=== PATIENT | male | born 1950 | race Caucasian/White ===

== ENCOUNTER 2017-04-06 11:55 | Outpatient (CLI) | payer OTHER ==
--- NOTE | 2017-04-06 14:07 | Ultrasound Report ---
RIGHT LEG VENOUS DUPLEX: 04/06/2017 CLINICAL INDICATION: Edema, surgery in June. TECHNIQUE: Real-time sonographic vascular imaging was performed by the booster pump oiler through the right lower extremity utilizing both color flow and Doppler spectral analysis. Multiple electroplating sales representative stat ic images were saved for review. FINDINGS: A right lower extremity venous sonogram is performed revealing the common femoral, superfic ial femoral, profunda femoris, and popliteal veins to be adequately visualized without intraluminal d efects. There is normal venous compression, augmentation, phasicity, and spontaneity of venous flow. In the calf, the visualized more cephalad portions of posterior tibial and peroneal veins are grossly compressible, without filling defects. IMPRESSION: NO EVIDENCE OF DEEP VENOUS THROMBOSIS. JOB #: [id number] EXT JOB #:[id number]
== END 2017-04-06 11:56 | disposition home or self-care (01) ==
LOC: DI 11:55
PROVIDERS: ATTEND Internal Medicine
DX: R60.0 Localized edema (principal)

== ENCOUNTER 2017-04-17 08:33 | Outpatient (CLI) | payer OTHER ==
--- NOTE | 2017-04-17 12:21 | XRAY Report ---
THREE-VIEW BILATERAL ANKLES: 04/17/2017 CLINICAL INDICATION: Bilateral pain. FINDINGS: AP, lateral, oblique views of the bilateral ankles demonstrate no evidence of fracture or dislocation. Small posterior calcaneal spurs are noted bilaterally. No effusion is present. IMPRESSION: MINIMAL DEGENERATIVE CHANGES. JOB #: [id number] EXT JOB #:[id number]
--- NOTE | 2017-04-17 12:22 | XRAY Report ---
THREE VIEW BILATERAL FEET: 04/17/2017 CLINICAL INDICATION: Foot and ankle pain. FINDINGS: AP, lateral, and oblique views of the bilateral feet demonstrate osteoarthritis of the 1st metatarsophalangeal joints and interphalangeal joints. There is no evidence of acute fracture or dis location. IMPRESSION: OSTEOARTHRITIS. 12:9:36 JOB #: [id number] EXT JOB #:[id number]
== END 2017-04-17 08:34 | disposition home or self-care (01) ==
LOC: DI 08:33
PROVIDERS: ATTEND Podiatrist
DX: M25.571 Pain in right ankle and joints of right foot (principal); M25.572 Pain in left ankle and joints of left foot; M19.072 Primary osteoarthritis, left ankle and foot; M19.071 Primary osteoarthritis, right ankle and foot

== ENCOUNTER 2019-04-28 08:47 | Outpatient (CLI) | payer OTHER ==
--- NOTE | 2019-04-29 06:44 | Ultrasound Report ---
Reason: ENCTR FOR SCREENING Procedure Date: 04/28/2019 Accession Number: [id number] / [id number] Procedure: US - Aorta Screening CPT Code: FULL RESULT: EXAM: AORTIC DOPPLER ULTRASOUND EXAM DATE: 04/28/2019 09:22 AM. CLINICAL HISTORY: Encounter for screening. COMPARISON: None. TECHNIQUE: Real-time sonographic imaging of retroperitoneal vascular structures, including color-flow, Doppler flow and spectral analysis was performed by the branch specialist. Multiple telephone service representative static images were saved for review. FINDINGS: Aorta: The abdominal aorta was adequately visualized. No evidence for abdominal aortic aneurysm. Aorta: Proximal: Sagittal AP 2.5 cm. Mid: Transverse 2.1 x 1.9 cm. Distal: Transverse 1.8 x 2.1 cm. Caliber: WNL: Yes. Plaque visualized: Yes. Iliacs: Right Iliac: Transverse 1.2 x 1.2 cm. Left Iliac: Transverse 1.3 x 1.1 cm. Iliac Vessels: The visualized proximal common iliac arteries are normal in caliber. Other: None. IMPRESSION: No abdominal aortic aneurysm. RADIA
== END 2019-04-28 08:48 | disposition home or self-care (01) ==
LOC: DI 08:47
PROVIDERS: ATTEND Internal Medicine
DX: Z13.6 Encounter for screening for cardiovascular disorders (principal)
CPT/HCPCS: 76706

== ENCOUNTER 2019-05-13 08:00 | Outpatient (CLI) | payer OTHER | END 2019-05-13 23:59 | disposition home or self-care (01) | LOC: LAB.R 08:00 | PROVIDERS: ATTEND Internal Medicine | DX: J02.9 Acute pharyngitis, unspecified (principal) | CPT/HCPCS: 87070; 87430 ==

== ENCOUNTER 2019-12-19 13:50 | Outpatient (CLI) | payer BC, MEDICARE | END 2019-12-19 13:51 | disposition home or self-care (01) | LOC: COV 13:50 | PROVIDERS: ATTEND Family Medicine | DX: R50.9 Fever, unspecified (principal) | CPT/HCPCS: 81599 ==

== ENCOUNTER 2021-09-18 11:52 | Day surgery (SDC) | payer MEDICARE, OTHER ==
[2021-09-18] MEDS ORDERED: LACTATED RINGERS 1,000 ML IV ONE ×2 (12:50→14:34)
[2021-09-18] MEDS ORDERED: PROPOFOL 200 MG/20 ML VIAL IVP ONE ×2 (13:28)
[2021-09-18] MEDS ORDERED: fentaNYL 100 MCG/2 ML VIAL ONE (13:29)
[2021-09-18] MEDS ORDERED: MIDAZOLAM 2 MG/2 ML VIAL ONE (13:29)
--- NOTE | 2021-09-18 13:54 | ANESTHESIA ---
Pre-Anesthesia VS, & Labs - Diagnosis screening exam, history of colon polyps - Procedure colonoscopy Vital Signs: Temp Pulse Resp BP Pulse Ox 37 C 90 16 150/84 H 99 09/18/21 12:12 09/18/21 12:12 09/18/21 12:12 09/18/21 12:12 09/18/21 12:12 Height: 6 ft 1 in Weight (kg): 93 kg Body Mass Index: 27.0 BMI Classification: Overweight - NPO >8 hours Home Medications and Allergies Cetirizine HCl [Zyrtec] 10 mg PO DAILY 02/13/16 Levothyroxine [Synthroid] 75 mcg PO QDAC 02/13/16 Melatonin [Vitajoy Melatonin] 2 mg SL DAILY 02/13/16 Minocycline HCl 100 mg PO DAILY PRN 07/01/16 Multivitamin [Multiple Vitamins] 1 tab PO DAILY 07/01/16 Metoprolol Tartrate [Lopressor] 12.5 mg PO PRN PRN 12/20/19 Valsartan [Diovan] 60 mg PO BID 12/20/19 Allergies/Adverse Reactions: Allergies Allergy/AdvReac Type Severity Reaction Status Date / Time adhesive tape Allergy Rash Verified 07/01/16 08:40 aspirin Allergy Rash Verified 02/13/16 13:54 diphenhydramine HCl * Allergy Hives Verified 07/01/16 10:37 [From Benadryl] latex Allergy Rash Verified 07/01/16 08:40 naproxen sodium * Allergy Rash Verified 02/13/16 13:55 [From Aleve] Sulfa (Sulfonamide Allergy Rash Verified 02/13/16 13:54 Antibiotics) clonidine AdvReac Rash Verified 07/04/16 06:58 doxazosin AdvReac Hives Verified 07/04/16 06:58 losartan AdvReac Rash Verified 07/04/16 06:58 omeprazole AdvReac Rash Verified 07/04/16 06:58 Anes History & Medical History - Anesthetic History Anesthesia Complications: reports: No previous complications - Medical History Cardiovascular: reports: Hypertension Pulmonary: reports: Pneumonia Gastrointestinal: reports: None Urinary: reports: None Neuro: reports: None Musculoskeletal: reports: Other Endocrine/Autoimmune: reports: HyPOthyroidism Blood Disorders: reports: None Skin: reports: Rosacea Smoking Status: Former smoker (Quit 38 yrs ago) Psychosocial: reports: No issues indicated History of Cancer?: Yes (colon cancer) - Surgical History General: reports: Bowel surgery, Colonoscopy, EGD Eyes Ears Nose Throat (EENT): reports: Tonsil/Adenoidectomy Exam General: Alert, Oriented x3, Cooperative, No acute distress Dental: Dentures full Upper, Dentures full Lower Mouth Openin Fingerbreadth Neck Mobility: Normal Mallampati classification: II Thyromental Distance: 4-6 cm Mental/Cognitive Status: Alert/Oriented X3, Normal for patient Plan Anesthesia Type: General, Total IV Consent for Procedure(s) Verified and Reviewed: Yes Code Status: Attempt Resuscitation ASA classification: 2-Mild systemic disease Is this case an emergency?: No
[2021-09-18 15:24] VITALS: BP 103/54
--- NOTE | 2021-09-18 18:28 | ANESTHESIA POST OP EVALUATION ---
Anesthesia Post Eval - Post Anesthesia Eval Vitals: Last Vital Signs Temp 36.4 C L 09/18/21 15:00 Pulse 64 09/18/21 15:15 Resp 16 09/18/21 15:15 BP 103/54 L 09/18/21 15:15 Pulse Ox 95 09/18/21 15:15 CV Function Including HR & BP: Stable Pain Control: Satisfactory Nausea & Vomiting: Negative Mental Status: Baseline Respiratory Status: Airway Patent Hydration Status: Satisfactory Anesthesia Complications: None
== END 2021-09-18 11:53 | disposition home or self-care (01) ==
LOC: SDS 11:52
PROVIDERS: ATTEND Surgery
DX: Z12.11 Encounter for screening for malignant neoplasm of colon (principal); Z86.010 Personal history of colon polyps; K64.8 Other hemorrhoids; Z87.891 Personal history of nicotine dependence; Z98.0 Intestinal bypass and anastomosis status; Z90.49 Acquired absence of other specified parts of digestive tract
CPT/HCPCS: G0105; J7120

== ENCOUNTER 2022-03-14 08:00 | Outpatient (CLI) | payer MEDICARE, OTHER ==
[2022-03-14 16:13] LABS: BASOPHILS % (AUTO) 0.7 %; EOSINOPHILS % (AUTO) 3.2 %; HCT - HEMATOCRIT 43.3 % (42.0-52.0); HGB - HEMOGLOBIN 14.4 g/dL (14.0-18.0); LYMPHOCYTES % (AUTO) 56.7 %; MEAN CORPUSCULAR HEMOGLOBIN 29.3 pg (27.0-31.0); MEAN CORPUSCULAR HGB CONC 33.3 g/dL (32.0-36.0); MEAN CORPUSCULAR VOLUME 88.2 fL (80.0-94.0); MEAN PLATELET VOLUME 9.8 fL (7.4-11.4); MONOCYTES % (AUTO) 8.8 %; NEUTROPHILS % (AUTO) 30.5 %; PLT - PLATELET COUNT 151 10^3/uL (130-450); RED BLOOD COUNT 4.91 10^6/uL (4.70-6.10); RED CELL DISTRIBUTION WIDTH 13.6 % (12.0-15.0); WHITE BLOOD COUNT 9.2 x10^3/uL (4.8-10.8)
[2022-03-14 16:29] LABS: ABNORMAL LYMPHS % (MANUAL) 0 %
[2022-03-14 16:34] LABS: PSA TOTAL 1.174 ng/mL (0.000-2.000)
[2022-03-14 17:12] LABS: ALBUMIN 4.5 g/dL (3.2-5.5); ALBUMIN/GLOBULIN RATIO 1.7 (1.0-2.2); ALKALINE PHOSPHATASE 53 IU/L (42-121); ALT ALANINE AMINOTRANSFERASE 20 IU/L (10-60); AST ASPARTATE AMINOTRANSFERASE 19 IU/L (10-42); BUN - BLOOD UREA NITROGEN 11 mg/dL (6-20); CALCIUM 9.3 mg/dL (8.5-10.3); CARBON DIOXIDE - CO2 28 mmol/L (21-32); CHLORIDE 100 mmol/L (101-111); CHOL/HDL RATIO 4.8 (<5.0); CHOLESTEROL 176 mg/dL; CREATININE 0.8 mg/dL (0.6-1.2); GFR - MDRD 96 (>89); GLUCOSE 114 mg/dL (70-100); HDL CHOLESTEROL 37 mg/dL; LDL CHOLESTEROL,CALCULATED 122 mg/dL; LDL/HDL RATIO 3.3 (<3.6); POTASSIUM 4.4 mmol/L (3.5-5.0); SODIUM 136 mmol/L (135-145); TOTAL PROTEIN 7.2 g/dL (6.7-8.2); TRIGLYCERIDES 86 mg/dL; VLDL CHOLESTEROL 17 mg/dL
[2022-03-14 17:24] LABS: BAND NEUTROPHILS % (MANUAL) 3 %; BASOPHILS # (MANUAL) 0.1 10^3/uL (0-0.1); BASOPHILS % (MANUAL) 1 %; DIFFERENTIAL COMMENT MANUAL DIFFERENTIAL; EOSINOPHILS # (MANUAL) 0.3 10^3/uL (0-0.7); LYMPHOCYTES # (MANUAL) 4.3 10^3/uL (1.5-3.5); LYMPHOCYTES % (MANUAL) 47 %; METAMYELOCYTES % (MANUAL) 1 %; MONOCYTES # (MANUAL) 0.9 10^3/uL (0.0-1.0); NEUTROPHILS # (MANUAL) 3.5 10^3/uL (1.5-6.6); PLATELET ESTIMATE, MANUAL NORMAL (130-450,000) (NORMAL); PLATELET MORPHOLOGY NORMAL APPEARANCE (NORMAL); RBC MORPHOLOGY (MULTIPLE) NORMAL APPEARANCE (NORMAL); WBC MORPHOLOGY (MULTIPLE) NORMAL APPEARANCE (NORMAL)
[2022-03-14 19:26] LABS: ESTIMATED AVERAGE GLUCOSE 120 mg/dL (70-100); HEMOGLOBIN A1c% 5.8 % (4.27-6.07)
== END 2022-03-14 23:59 | disposition home or self-care (01) ==
LOC: LAB.R 08:00
PROVIDERS: ATTEND Internal Medicine
DX: Z00.00 Encounter for general adult medical examination without abnormal findings (principal); K21.9 Gastro-esophageal reflux disease without esophagitis; Z86.010 Personal history of colon polyps; R73.9 Hyperglycemia, unspecified; I10 Essential (primary) hypertension; M19.90 Unspecified osteoarthritis, unspecified site; Z12.5 Encounter for screening for malignant neoplasm of prostate; Z79.899 Other long term (current) drug therapy
CPT/HCPCS: 80053; 80061; 83036; 83721; 84153; 84443; 85025

== ENCOUNTER 2022-11-29 12:47 | Emergency (ER) | payer MEDICARE, OTHER ==
[2022-11-29 13:30] LABS: BILIRUBIN,URINE NEGATIVE (NEGATIVE); GLUCOSE, URINE (UA) NEGATIVE (NEGATIVE); KETONES,URINE (UA) NEGATIVE (NEGATIVE); LEUKOCYTE ESTERASE, URINE NEGATIVE (NEGATIVE); NITRITE,URINE NEGATIVE (NEGATIVE); OCCULT BLOOD,URINE NEGATIVE (NEGATIVE); PROTEIN,URINE NEGATIVE (NEGATIVE); UROBILINOGEN,URINE 0.2 (NORMAL) E.U./dL (NORMAL)
[2022-11-29 13:31] LABS: CLARITY,URINE CLEAR (CLEAR)
--- NOTE | 2022-11-29 13:41 | ED Physician Documentation ---
PD HPI ABD PAIN - Stated complaint Stated Complaint: MALE - Chief complaint Chief Complaint: Abd Pain - History obtained from History obtained from: Patient - History of Present Illness Timing - onset: Today Timing - details: Gradual onset Pain level max: 2 Pain level now: 0 Quality: Pain Location: Suprapubic Associated symptoms: Diarrhea (1 week ago), Dysuria, Other (states urine smells). No: Fever, Nausea, Vomiting, Hematemesis, Constipation, Melena, Hematochezia, Hematuria Review of Systems Constitutional: denies: Fever, Chills Respiratory: denies: Cough GI: denies: Nausea, Vomiting, Hematemesis, Bloody / black stool Skin: denies: Rash Musculoskeletal: denies: Neck pain, Back pain PD PAST MEDICAL HISTORY - Past Medical History Cardiovascular: Hypertension Respiratory: Pneumonia Neuro: None Endocrine/Autoimmune: HyPOthyroidism GI: None : None HEENT: Dental implants Psych: Claustrophobia Musculoskeletal: Other Derm: Rosacea - Past Surgical History General: Bowel surgery, Colonoscopy, EGD HEENT: Tonsil/Adenoidectomy - Present Medications Home Medications: Ambulatory Orders Medication Instructions Recorded Confirmed Cetirizine HCl [Zyrtec] 10 mg PO DAILY 02/13/16 09/17/21 Levothyroxine [Synthroid] 75 mcg PO QDAC 02/13/16 09/18/21 Melatonin [Vitajoy Melatonin] 2 mg SL DAILY 02/13/16 09/17/21 Minocycline HCl 100 mg PO DAILY PRN 07/01/16 09/17/21 Multivitamin [Multiple Vitamins] 1 tab PO DAILY 07/01/16 09/17/21 Metoprolol Tartrate [Lopressor] 12.5 mg PO PRN PRN 12/20/19 09/17/21 Valsartan [Diovan] 60 mg PO BID 12/20/19 09/18/21 cephALEXin [Keflex] 500 mg PO Q6H #28 cap 11/29/22 - Allergies Allergies/Adverse Reactions: Allergies Allergy/AdvReac Type Severity Reaction Status Date / Time adhesive tape Allergy Rash Verified 07/01/16 08:40 aspirin Allergy Rash Verified 02/13/16 13:54 diphenhydramine HCl * Allergy Hives Verified 07/01/16 10:37 [From Benadryl] latex Allergy Rash Verified 07/01/16 08:40 naproxen sodium * Allergy Rash Verified 02/13/16 13:55 [From Aleve] Sulfa (Sulfonamide Allergy Rash Verified 02/13/16 13:54 Antibiotics) clonidine AdvReac Rash Verified 07/04/16 06:58 doxazosin AdvReac Hives Verified 07/04/16 06:58 losartan AdvReac Rash Verified 07/04/16 06:58 omeprazole AdvReac Rash Verified 07/04/16 06:58 - Social History Smoking Status: Former smoker (Quit 38 yrs ago) PD ED PE NORMAL - Vitals Vital signs reviewed: Yes - General General: Alert and oriented X 3, No acute distress - HEENT HEENT: Moist mucous membranes - Neck Neck: Supple, no meningeal sign - Cardiac Cardiac: RRR, Strong equal pulses - Respiratory Respiratory: No respiratory distress, Clear bilaterally - Abdomen Abdomen: Soft, Non tender, Non distended - Derm Derm: Warm and dry - Neuro Neuro: Alert and oriented X 3 - Psych Psych: Normal mood, Normal affect Results - Vitals Vitals: Vital Signs - 24 hr 11/29/22 11/29/22 12:55 14:15 Temperature 36.2 C L 36.1 C L Heart Rate 60 59 L Respiratory 18 18 Rate Blood Pressure 154/78 H 154/68 H O2 Saturation 100 98 Oxygen O2 Source Room air - Labs Labs: Laboratory Tests 11/29/22 13:19 Urine Color YELLOW Urine Clarity CLEAR Urine pH 6.0 Ur Specific Stanley 1.010 Urine Protein NEGATIVE Urine Glucose (UA) NEGATIVE Urine Ketones NEGATIVE Urine Occult Blood NEGATIVE Urine Nitrite NEGATIVE Urine Bilirubin NEGATIVE Urine Urobilinogen 0.2 (NORMAL) Ur Leukocyte Esterase NEGATIVE Ur Microscopic Review NOT INDICATED Urine Culture Comments NOT INDICATED PD Medical Decision Making - ED course Complexity details: reviewed results, considered differential, d/w patient, d/w family ED course: No acute findings on urinalysis, however patient had just urinated prior to giving the sample. Possible false negative. I discussed doing blood work and/or imaging. Patient does not want to do either of these at this moment. Feels similar to prior UTI. We will try treating with antibiotics. We will see if the patient symptoms resolve. No symptoms of prostatitis. No pain with bowel movements or sitting. Patient is comfortable with this plan and will return if he develops any worsening symptoms, fevers, abdominal pain, etc. Patient counseled regarding signs and symptoms for which I believe and urgent re-evaluation would be necessary. Patient with good understanding of and agreement to plan and is comfortable going home at this time This document was made in part using voice recognition software. While efforts are made to proofread this document, sound alike and grammatical errors may occur. Departure - Departure Disposition: Home, Self Care Clinical Impression: UTI (urinary tract infection) Qualifiers: Urinary tract infection type: acute cystitis Hematuria presence: without hematuria Qualified Code(s): N30.00 - Acute cystitis without hematuria Condition: Good Instructions: ED UTI Cystitis Male Follow-Up: Dede Silva MD [Primary Care Provider] - As Needed Prescriptions: cephALEXin [Keflex] 500 mg PO Q6H #28 cap Comments: Your prescription was sent to [facility] in [place]. Please take all antibiotics until gone. As we discussed, your symptoms are consistent with a ur inary tract infection, your urinalysis does not show infection, but could be due to your recent urination prior to giving the sample. We did discuss blood work and further work-up, but have elected to proceed with antibiotic therapy and see if this relieves your symptoms. If you develop fevers, worsening pain or other new or worrisome symptoms, please return for further evaluation. Discharge Date/Time: 11/29/22 14:15
[2022-11-29] MEDS ORDERED: cephALEXin 250 MG CAPSULE PO STA (13:56)
[2022-11-29 14:16] VITALS: BP 154/68
== END 2022-11-29 14:15 | disposition home or self-care (01) ==
LOC: ED 12:47
DX: N30.00 Acute cystitis without hematuria (principal); I10 Essential (primary) hypertension; E03.9 Hypothyroidism, unspecified; Z79.899 Other long term (current) drug therapy; Z87.891 Personal history of nicotine dependence
CPT/HCPCS: 81003; 99283; A9270; 81001; 87086

== ENCOUNTER 2023-01-19 16:45 | Outpatient (CLI) | payer MEDICARE, OTHER ==
--- NOTE | 2023-01-20 13:05 | XRAY Report ---
PROCEDURE: Chest 2 View X-Ray INDICATIONS: DYSPNEA,PLEURAL EFFUSION TECHNIQUE: 2 views of the chest were acquired. COMPARISON: CT chest 01/11/2023 FINDINGS: Surgical changes and devices: None. Lungs and pleura: There is near complete opacification of the right hemithorax. It has increased com pared to prior exam. Mediastinum: Mediastinal contours appear normal. Heart size is enlarged. Bones and chest wall: No suspicious bony lesions. Overlying soft tissues appear unremarkable. IMPRESSION: Near complete opacification of the right hemithorax likely representing effusion. Underlying areas of pneumonia or atelectasis in cannot be excluded. No Reviewed by: Amie Ro MD on 01/20/2023 1:04 PM PDT Approved by: Amie Ro MD on 01/20/2023 1:04 PM PDT Station ID: [id number]
== END 2023-01-19 16:46 | disposition home or self-care (01) ==
LOC: DI 16:45
PROVIDERS: ATTEND Internal Medicine
DX: R91.8 Other nonspecific abnormal finding of lung field (principal); J90 Pleural effusion, not elsewhere classified

== ENCOUNTER 2023-01-21 07:11 | Outpatient (CLI) | payer MEDICARE, OTHER ==
[2023-01-21] MEDS ORDERED: LIDOCAINE-MPF 1% 5 ML VIAL ONE (08:01)
[2023-01-21] MEDS ORDERED: MIDAZOLAM 2 MG/2 ML VIAL ONE (08:50)
[2023-01-21] MEDS ORDERED: fentaNYL 100 MCG/2 ML VIAL ONE (08:50)
[2023-01-21] MEDS ORDERED: fentaNYL 100 MCG/2 ML VIAL IVP ONE (09:20)
[2023-01-21] MEDS ORDERED: MIDAZOLAM 2 MG/2 ML VIAL IVP ONE (09:20)
[2023-01-21] MEDS ORDERED: fentaNYL 100 MCG/2 ML VIAL IVP SCH (09:20)
[2023-01-21] MEDS ORDERED: LACTATED RINGERS 1,000 ML IV ONE (10:15)
[2023-01-21 13:11] VITALS: BP 139/72
--- NOTE | 2023-01-21 16:27 | CT Report ---
PROCEDURE: Retroperitoneal Mass BX INDICATIONS: CANCER, ABN IMAGING TECHNIQUE: The risks and benefits of the procedure were discussed with the patient. Consent was obtai lila and placed on the chart. The patient was placed in a prone position on the CT table. Cardiorespir atory monitoring and sedation was provided by residential staff. 1% lidocaine was used to anesthetize the skin over the area of interest. Under CT guidance, a 19-gaug e trocar was advanced into a retroperitoneal lymph node. A 20-gauge needle was used to sample the lef t retroperitoneal lymph node. Approximately 6 samples were obtained and sent for laboratory analysis. COMPARISON: None. FINDINGS: Initial CT demonstrates a large right pleural effusion. Multiple CT images demonstrate the appropriat e location of the biopsy trocar. IMPRESSION: Status post CT-guided left retroperitoneal node biopsy. Reviewed by: Barbara Christina MD on 01/21/2023 4:26 PM PDT Approved by: Barbara Christina MD on 01/21/2023 4:26 PM PDT Station ID: [id number]
== END 2023-01-21 07:12 | disposition home or self-care (01) ==
LOC: DI 07:11
PROVIDERS: ATTEND Internal Medicine
DX: C79.9 Secondary malignant neoplasm of unspecified site (principal); Z79.899 Other long term (current) drug therapy; J90 Pleural effusion, not elsewhere classified
CPT/HCPCS: 36415; 49180; 85049; 85610; 85730; J7120

== ENCOUNTER 2023-01-21 08:00 | Outpatient (CLI) | payer MEDICARE, OTHER ==
[2023-01-21 08:41] LABS: INR 1.2 (0.8-1.2); PT - PROTHROMBIN TIME 13.7 secs (9.9-12.6)
[2023-01-21 08:49] LABS: PARTIAL THROMBOPLASTIN TIME 32.3 secs (24.9-33.3)
== END 2023-01-21 23:59 | disposition home or self-care (01) ==
LOC: LAB.R 08:00
PROVIDERS: ATTEND Internal Medicine
DX: Z79.899 Other long term (current) drug therapy (principal)
CPT/HCPCS: 36415; 85049; 85610; 85730

== ENCOUNTER 2023-01-22 07:39 | Outpatient (CLI) | payer MEDICARE, OTHER ==
[2023-01-22] MEDS ORDERED: LIDOCAINE-MPF 1% 5 ML VIAL ONE (07:58)
[2023-01-22] MEDS ORDERED: LIDOCAINE-MPF 1% 5 ML VIAL TD ONE (08:58)
--- NOTE | 2023-01-22 09:01 | XRAY Report ---
PROCEDURE: Post Thoracentesis 1V CXR INDICATIONS: POST THORA TECHNIQUE: One view of the chest was acquired. COMPARISON: None. FINDINGS: Surgical changes and devices: None. Lungs and pleura: Prominent effusion status post thoracentesis. No pneumothorax. Mediastinum: Mediastinal contours appear normal. Heart size is normal. Bones and chest wall: No suspicious bony lesions. Overlying soft tissues appear unremarkable. IMPRESSION: No pneumothorax status post thoracentesis. Reviewed by: Amie Ro MD on 01/22/2023 9:00 AM PDT Approved by: Amie Ro MD on 01/22/2023 9:00 AM PDT Station ID: [id number]
--- NOTE | 2023-01-22 16:06 | Ultrasound Report ---
PROCEDURE: Thoracentesis Puncture INDICATIONS: RIGHT PLEURAL EFFUSION TECHNIQUE: The indications, alternatives, benefits, risks, and complications of the procedure were explained to the patient. Written informed consent was obtained and placed in the chart. The chest was examined sonographically, and an appropriate site was chosen for thoracentesis. The skin was prepared and diana ped in the usual sterile fashion, and 1% lidocaine was infiltrated from the skin down through the ple ural surface. A 19-gauge catheter-covered needle was then introduced into the pleural space, the cat heter was advanced and the needle was withdrawn, and thereafter pleural fluid was aspirated. The cat heter was then removed and a dressing was applied. COMPARISON: None. FINDINGS: Access site: Right hemithorax. Needle: One-Step centesis catheter with introducer needle. Fluid volume and description: 1.4 L yellow Fluid sent for diagnostic testing: No Medications: 1% lidocaine for local anaesthesia. Complications: None; post-procedural chest radiograph is pending to assess for pneumothorax. IMPRESSION: Successful ultrasound-guided thoracentesis. Reviewed by: Amie Ro MD on 01/22/2023 4:05 PM PDT Approved by: Amie Ro MD on 01/22/2023 4:05 PM PDT Station ID: [id number]
== END 2023-01-22 07:40 | disposition home or self-care (01) ==
LOC: DI 07:39
PROVIDERS: ATTEND Internal Medicine
DX: J90 Pleural effusion, not elsewhere classified (principal)
CPT/HCPCS: 32555

== ENCOUNTER 2023-01-28 11:45 | Outpatient (CLI) | payer MEDICARE, OTHER ==
[2023-01-28] MEDS ORDERED: LIDOCAINE-MPF 1% 5 ML VIAL ONE (12:07)
--- NOTE | 2023-01-28 12:51 | XRAY Report ---
PROCEDURE: Post Thoracentesis 1V CXR INDICATIONS: POST THORA TECHNIQUE: One view of the chest was acquired. COMPARISON: 01/25/2023 FINDINGS: Surgical changes and devices: None. Lungs and pleura: Large right pleural effusion, though smaller compared to the prior study following thoracentesis. There is no pneumothorax. There is partial visualization of a probable right midlung and right perihilar mass. There is a small patchy nodule on the left inferolateral lung. No left-side d pleural effusion. Mediastinum: Mediastinal contours appear normal. Heart size is normal. Bones and chest wall: No suspicious bony lesions. Overlying soft tissues appear unremarkable. IMPRESSION: 1. No right-sided pneumothorax following right thoracentesis. 2. Known pulmonary masses. Reviewed by: Sol Marks MD on 01/28/2023 12:50 PM PDT Approved by: Sol Marks MD on 01/28/2023 12:50 PM PDT Station ID: [id number]
[2023-01-28] MEDS ORDERED: LIDOCAINE-MPF 1% 5 ML VIAL TD ONE (13:32)
--- NOTE | 2023-01-28 15:28 | Ultrasound Report ---
PROCEDURE: Thoracentesis Puncture INDICATIONS: PLEURAL EFFUSION TECHNIQUE: The indications, alternatives, benefits, risks, and complications of the procedure were explained to the patient. Written informed consent was obtained and placed in the chart. The chest was examined sonographically, and an appropriate site was chosen for thoracentesis. The skin was prepared and diana ped in the usual sterile fashion, and 1% lidocaine was infiltrated from the skin down through the ple ural surface. A 19-gauge catheter-covered needle was then introduced into the pleural space, the cat heter was advanced and the needle was withdrawn, and thereafter pleural fluid was aspirated. The cat heter was then removed and a dressing was applied. COMPARISON: 01/22/2023 FINDINGS: Access site: Right hemithorax. Needle: One-Step centesis catheter with introducer needle. Fluid volume and description: 1.6 L dark straw-colored pleural fluid. Fluid sent for diagnostic testing: No Medications: 1% lidocaine for local anaesthesia. Complications: None; post-procedural chest radiograph is pending to assess for pneumothorax. IMPRESSION: Successful ultrasound-guided thoracentesis. Reviewed by: Sol Marks MD on 01/28/2023 3:27 PM PDT Approved by: Sol Marks MD on 01/28/2023 3:27 PM PDT Station ID: [id number]
== END 2023-01-28 11:46 | disposition home or self-care (01) ==
LOC: DI 11:45
PROVIDERS: ATTEND Internal Medicine
DX: J90 Pleural effusion, not elsewhere classified (principal)
CPT/HCPCS: 32555

== ENCOUNTER 2023-02-04 12:13 | Outpatient (CLI) | payer MEDICARE, OTHER ==
[2023-02-04] MEDS ORDERED: LIDOCAINE-MPF 1% 5 ML VIAL ONE (12:37)
--- NOTE | 2023-02-04 13:30 | XRAY Report ---
PROCEDURE: Post Thoracentesis 1V CXR INDICATIONS: POST THORACENTESIS TECHNIQUE: One view of the chest was acquired. COMPARISON: Chest radiographs 01/28/2023. CTA chest 01/11/2023. FINDINGS: Surgical changes and devices: None. Lungs and pleura: Small residual right pleural effusion. No pneumothorax. Right apical opacity is st able and may represent loculated pleural fluid or mass. Previously seen bilateral pulmonary nodules a re not well seen radiographically. Mediastinum: Mediastinal contours appear normal. Heart size is normal. Bones and chest wall: No suspicious bony lesions. Overlying soft tissues appear unremarkable. IMPRESSION: 1.Decreased right pleural effusion status post thoracentesis. No pneumothorax. 2.Right apical opacity may represent loculated fluid or solid mass. Reviewed by: Bethel Jean MD on 02/04/2023 1:28 PM PDT Approved by: Bethel Jean MD on 02/04/2023 1:28 PM PDT Station ID: [id number]
[2023-02-04] MEDS ORDERED: LIDOCAINE-MPF 1% 5 ML VIAL TD ONE (13:44)
--- NOTE | 2023-02-04 13:55 | Ultrasound Report ---
PROCEDURE: Thoracentesis Puncture INDICATIONS: PLEURAL EFFUSION TECHNIQUE: The indications, alternatives, benefits, risks, and complications of the procedure were explained to the patient. Written informed consent was obtained and placed in the chart. The chest was examined sonographically, and an appropriate site was chosen for thoracentesis. The skin was prepared and diana ped in the usual sterile fashion, and 1% lidocaine was infiltrated from the skin down through the ple ural surface. A 19-gauge catheter-covered needle was then introduced into the pleural space, the cat heter was advanced and the needle was withdrawn, and thereafter pleural fluid was aspirated. The cat heter was then removed and a dressing was applied. COMPARISON: Chest radiograph 01/28/2023. FINDINGS: Access site: Right hemithorax. Needle: One-Step centesis catheter with introducer needle. Fluid volume and description: 2.5 L clear brownish fluid Fluid sent for diagnostic testing: Not requested Medications: 1% lidocaine for local anaesthesia. Complications: None; post-procedural chest radiograph is pending to assess for pneumothorax. IMPRESSION: Successful ultrasound-guided thoracentesis. Reviewed by: Bethel Jean MD on 02/04/2023 1:54 PM PDT Approved by: Bethel Jean MD on 02/04/2023 1:54 PM PDT Station ID: [id number]
== END 2023-02-04 12:14 | disposition home or self-care (01) ==
LOC: DI 12:13
PROVIDERS: ATTEND Internal Medicine
DX: J90 Pleural effusion, not elsewhere classified (principal)
CPT/HCPCS: 32555

== ENCOUNTER 2023-02-10 13:22 | Emergency (ER) | payer MEDICARE, OTHER ==
[2023-02-10] MEDS ORDERED: HYDROmorphone 2 MG TABLET PO STA (14:05)
--- NOTE | 2023-02-10 14:29 | ED Physician Documentation ---
History of Present Illness - Stated complaint Stated Complaint: SOA - Chief complaint Chief Complaint: Resp - History obtained from History obtained from: Patient, Family - History of Present Illness Pain level max: 5 Pain level now: 5 - Additonal information Additional information: Patient has a history of stage IV colon cancer with metastases to the lung, right pleural, liver, abdominal adenopathy. He has pending initiation of palliative chemotherapy. He is scheduled for weekly thoracentesis. He states he is having continued pain on the right side of the chest, worse with breathing. He also feels short of breath. This been ongoing for the past several days. He has his next thoracentesis in 2 days. He has only taken Tyle nol for pain. Review of Systems Constitutional: denies: Fever, Chills Respiratory: denies: Cough GI: denies: Vomiting, Diarrhea Skin: denies: Rash PD PAST MEDICAL HISTORY - Past Medical History Cardiovascular: Hypertension, High cholesterol Respiratory: Pneumonia Neuro: None Endocrine/Autoimmune: Type 2 diabetes, HyPOthyroidism GI: GERD, Colon polyps, Other : None HEENT: Chronic hearing loss Psych: Claustrophobia Musculoskeletal: Osteoarthritis Derm: Rosacea, Other - Past Surgical History Past Surgical History: Yes General: Bowel surgery, Colonoscopy HEENT: Tonsil/Adenoidectomy - Present Medications Home Medications: Ambulatory Orders Medication Instructions Recorded Confirmed Levothyroxine [Synthroid] 75 mcg PO QDAC 02/13/16 02/02/23 Minocycline HCl 100 mg PO PRN PRN 07/01/16 02/02/23 Metoprolol Tartrate [Lopressor] 12.5 mg PO PRN PRN 12/20/19 02/02/23 Albuterol 2.5 mg INH Q4H PRN #30 ml 01/25/23 02/02/23 Cholecalciferol (Vitamin D3) 2,000 unit PO 02/02/23 [Vitamin D3] Famotidine 1 tab PO DAILY PRN 02/02/23 02/02/23 Ipratropium/Albuterol [Duoneb] 3 ml INH BID 02/02/23 02/02/23 Magnesium Citrate 125 mg PO BID 02/02/23 02/02/23 Melatonin 1 tab PO DAILY PRN 02/02/23 02/02/23 Ubidecarenone [Co Q10] 50 mg PO DAILY 02/02/23 02/02/23 Hydromorphone HCl 2 mg PO Q6H PRN #14 tablet 02/10/23 - Allergies Allergies/Adverse Reactions: Allergies Allergy/AdvReac Type Severity Reaction Status Date / Time oxycodone Allergy Unknown Unknown Verified 02/10/23 13:26 adhesive tape Allergy Rash Verified 02/10/23 13:26 aspirin Allergy Rash Verified 02/10/23 13:26 diphenhydramine HCl * Allergy Hives Verified 02/10/23 13:26 [From Benadryl] latex Allergy Rash Verified 02/10/23 13:26 naproxen sodium * Allergy Rash Verified 02/10/23 13:26 [From Aleve] Sulfa (Sulfonamide Allergy Rash Verified 02/10/23 13:26 Antibiotics) clonidine AdvReac Rash Verified 02/10/23 13:26 doxazosin AdvReac Hives Verified 02/10/23 13:26 losartan AdvReac Rash Verified 02/10/23 13:26 omeprazole AdvReac Rash Verified 01/25/23 13:09 - Social History Does the pt smoke?: No Smoking Status: Never smoker PD ED PE NORMAL - Vitals Vital signs reviewed: Yes - General General: Alert and oriented X 3, No acute distress - HEENT HEENT: Moist mucous membranes - Neck Neck: Supple, no meningeal sign - Cardiac Cardiac: RRR - Respiratory Respiratory: Other (Diminished breath sounds right side, left side is clear) - Abdomen Abdomen: Soft, Non tender, Non distended - Derm Derm: Warm and dry - Extremities Extremities: No calf tenderness / cord - Neuro Neuro: Alert and oriented X 3 Results - Vitals Vitals: Vital Signs - 24 hr 02/10/23 02/10/23 13:26 15:14 Temperature 36.5 C Heart Rate 95 88 Respiratory 16 17 Rate Blood Pressure 140/84 H 138/88 H O2 Saturation 98 98 Oxygen O2 Source Room air - Rads (name of study) Chest x-ray Relevant Findings:: EMP independent interpretation of test (Large right-sided pleural effusion) PD Medical Decision Making - ED course Complexity details: reviewed results, re-evaluated patient, considered differential, d/w patient, d/w family ED course: 72-year-old male with metastatic stage IV colon cancer, metastases to the right lungs. Scheduled to start palliative chemotherapy soon. He is not in any respiratory distress. No hypoxia. Chest x-ray here shows a recurrence of the pleural effusion. Similar appearance to prior. We will place on pain medication for home and have him follow-up in 2 days for planned thoracentesis. Discussed indications for emergent thoracentesis if needed. Patient and family counseled regarding signs and symptoms for which I believe and urgent re- evaluation would be necessary. Patient with good understanding of and agreement to plan and is comfortable going home at this time This document was made in part using voice recognition software. While efforts are made to proofread this document, sound alike and grammatical errors may occur. Patient feels much better after oral Dilaudid here. Departure - Departure Disposition: 01 Home, Self Care Clinical Impression: Pleural effusion, H/O colon cancer, stage IV Condition: Good Instructions: ED Effusion Pleural Follow-Up: Dede Silva MD [Primary Care Provider] - Within 1 week Prescriptions: Hydromorphone HCl 2 mg PO Q6H PRN #14 tablet PRN Reason: pain Comments: Your prescriptions were sent to [facility] in [place]. Please follow-up for your thoracentesis as scheduled in 2 days. Please return if you worsen. I am prescribing a short course of narcotic pain medication for you. These are potentially dangerous and addictive medications that should be used carefully. These medications may constipate you. Take an fofz-goy-xwnwqqx stool softener (docusate) twice daily with plenty of water while taking these medications. If you go 24 hours without a bowel movement, take [id number]-[id number] miralax, per package instructions. Do not drink or drive while taking these medications. If you received narcotic or sedating medications while in the emergency department, do not drive for 24 hours. Store this medication in a safe, secure place and out of reach of children. It is a violation of federal law to give or sell this medication to another person or to use in a manner other than prescribed. The ED will not refill narcotic prescriptions, including prescriptions lost or stolen. To dispose of unwanted medications: 1. [facility] [address] [facility] [place] has a medication drop box. They accept prescription medications (in pill form) Thursday through Thursday 9:00 a.m. to 5:00 p.m. 2. The [facility] [employer] accepts prescription medications (in pill form only) for disposal year round. Call for more information. 3. Contact the [facility] for the next [facility] sponsored prescription drug collection event. , [phone], or [phone]; Discharge Date/Time: 02/10/23 15:15
[2023-02-10 15:17] VITALS: BP 138/88
--- NOTE | 2023-02-10 17:18 | XRAY Report ---
PROCEDURE: Chest 2 View X-Ray INDICATIONS: chest pain, s/p thoracentesis last week TECHNIQUE: 2 views of the chest were acquired. COMPARISON: None. FINDINGS: Surgical changes and devices: None. Lungs and pleura: There is near complete opacification of the right hemithorax. This is a marked int erval change when compared with the prior plain film from 02/04/2023. Left lung is clear. Mediastinum: Mediastinal contours appear normal. Heart size is normal. Bones and chest wall: No suspicious bony lesions. Overlying soft tissues appear unremarkable. IMPRESSION: Near complete opacification of the right hemithorax presumably secondary to very large right pleural effusion. Reviewed by: Barbara Christina MD on 02/10/2023 5:17 PM PDT Approved by: Barbara Christina MD on 02/10/2023 5:17 PM PDT Station ID: [id number]
== END 2023-02-10 15:15 | disposition home or self-care (01) ==
LOC: ED 13:22
DX: J90 Pleural effusion, not elsewhere classified (principal); C18.9 Malignant neoplasm of colon, unspecified; C78.01 Secondary malignant neoplasm of right lung; C78.7 Secondary malignant neoplasm of liver and intrahepatic bile duct; C77.2 Secondary and unspecified malignant neoplasm of intra-abdominal lymph nodes
CPT/HCPCS: 99283; 99284

== ENCOUNTER 2023-02-12 08:00 | Outpatient (CLI) | payer MEDICARE, OTHER ==
[2023-02-12] MEDS ORDERED: LIDOCAINE-MPF 1% 5 ML VIAL ONE (09:57)
--- NOTE | 2023-02-12 11:49 | Ultrasound Report ---
PROCEDURE: Thoracentesis Puncture INDICATIONS: PLEURAL EFFUSION TECHNIQUE: The indications, alternatives, benefits, risks, and complications of the procedure were explained to the patient. Written informed consent was obtained and placed in the chart. The chest was examined sonographically, and an appropriate site was chosen for thoracentesis. The skin was prepared and diana ped in the usual sterile fashion, and 1% lidocaine was infiltrated from the skin down through the ple ural surface. A 19-gauge catheter-covered needle was then introduced into the pleural space, the cat heter was advanced and the needle was withdrawn, and thereafter pleural fluid was aspirated. The cat heter was then removed and a dressing was applied. COMPARISON: None. FINDINGS: Access site: Right hemithorax. Needle: One-Step centesis catheter with introducer needle. Fluid volume and description: 2 L dark red fluid. Fluid sent for diagnostic testing: None Medications: 1% lidocaine for local anaesthesia. Complications: None; post-procedural chest radiograph is pending to assess for pneumothorax. IMPRESSION: Successful ultrasound-guided thoracentesis. Reviewed by: Hermes Francois on 02/12/2023 11:48 AM PDT Approved by: Hermes Francois on 02/12/2023 11:48 AM PDT Station ID: [id number]
== END 2023-02-12 23:59 | disposition home or self-care (01) ==
LOC: DI 08:00
PROVIDERS: ATTEND Internal Medicine
DX: J90 Pleural effusion, not elsewhere classified (principal)
CPT/HCPCS: 32555

== ENCOUNTER 2023-02-12 09:30 | Day surgery (SDC) | payer MEDICARE, OTHER ==
[2023-02-12] MEDS ORDERED: LACTATED RINGERS 1,000 ML IV ONE ×2 (09:50→12:54)
--- NOTE | 2023-02-12 10:04 | ANESTHESIA ---
Pre-Anesthesia VS, & Labs - Diagnosis colon cancer - Procedure port placement Vital Signs: Temp Pulse Resp BP Pulse Ox O2 Flow Rate 36.7 C 100 21 131/78 H 95 02/12/23 09:50 02/12/23 09:50 02/12/23 09:50 02/12/23 09:50 02/12/23 09:50 Height: 6 ft 1 in Weight (kg): 86.64 kg Body Mass Index: 25.2 BMI Classification: Overweight - NPO >8 hours Home Medications and Allergies Levothyroxine [Synthroid] 75 mcg PO QDAC 02/13/16 Minocycline HCl 100 mg PO PRN PRN 07/01/16 Metoprolol Tartrate [Lopressor] 12.5 mg PO PRN PRN 12/20/19 Cholecalciferol (Vitamin D3) [Vitamin D3] 2,000 unit PO 02/02/23 Famotidine 1 tab PO DAILY PRN 02/02/23 Ipratropium/Albuterol [Duoneb] 3 ml INH BID 02/02/23 Magnesium Citrate 125 mg PO BID 02/02/23 Melatonin 1 tab PO DAILY PRN 02/02/23 Ubidecarenone [Co Q10] 50 mg PO DAILY 02/02/23 Allergies/Adverse Reactions: Allergies Allergy/AdvReac Type Severity Reaction Status Date / Time oxycodone Allergy Unknown Unknown Verified 02/10/23 13:26 adhesive tape Allergy Rash Verified 02/10/23 13:26 aspirin Allergy Rash Verified 02/10/23 13:26 diphenhydramine HCl * Allergy Hives Verified 02/10/23 13:26 [From Benadryl] latex Allergy Rash Verified 02/10/23 13:26 naproxen sodium * Allergy Rash Verified 02/10/23 13:26 [From Aleve] Sulfa (Sulfonamide Allergy Rash Verified 02/10/23 13:26 Antibiotics) clonidine AdvReac Rash Verified 02/10/23 13:26 doxazosin AdvReac Hives Verified 02/10/23 13:26 losartan AdvReac Rash Verified 02/10/23 13:26 omeprazole AdvReac Rash Verified 01/25/23 13:09 Anes History & Medical History - Anesthetic History Anesthesia Complications: reports: No previous complications - Medical History Cardiovascular: reports: Hypertension, High cholesterol Pulmonary: reports: Pneumonia Gastrointestinal: reports: GERD, Colon polyps, Other Urinary: reports: None Neuro: reports: None Musculoskeletal: reports: Osteoarthritis Endocrine/Autoimmune: reports: HyPOthyroidism Blood Disorders: reports: None Skin: reports: Rosacea, Other Smoking Status: Never smoker History of Cancer?: Yes - Surgical History General: reports: Bowel surgery, Colonoscopy Eyes Ears Nose Throat (EENT): reports: Tonsil/Adenoidectomy Exam General: Alert, Oriented x3 Dental: Dentures full Upper, Dentures full Lower Mouth Opening: Greater than 4 Fingerbreadths Neck Mobility: Normal Mallampati classification: II Thyromental Distance: greater than 6 cm Respiratory: Lungs clear, Decreased breath sounds (on right) Cardiovascular: Regular rate, Normal S1, Normal S2 Plan Anesthesia Type: General, Total IV Consent for Procedure(s) Verified and Reviewed: Yes Code Status: Attempt Resuscitation ASA classification: 3-Severe systemic disease Is this case an emergency?: No
[2023-02-12] MEDS ORDERED: LIDOCAINE 1%-EPI 1:100000 20 ML MDV ONE (10:07)
[2023-02-12] MEDS ORDERED: BUPIVACAINE 0.25% PF 30 ML VIAL ONE (10:07)
[2023-02-12] MEDS ORDERED: LIDOCAINE-MPF 1% 5 ML VIAL TD ONE (11:28)
[2023-02-12] MEDS ORDERED: MIDAZOLAM 2 MG/2 ML VIAL ONE (11:54)
[2023-02-12] MEDS ORDERED: fentaNYL 100 MCG/2 ML VIAL ONE (11:54)
--- NOTE | 2023-02-12 11:55 | XRAY Report ---
PROCEDURE: Post Thoracentesis 1V CXR INDICATIONS: POST THORACENTESIS TECHNIQUE: One view of the chest was acquired. COMPARISON: None. FINDINGS: Surgical changes and devices: None. Lungs and pleura: Moderate right pleural effusion. No pneumothorax. Mediastinum: Mediastinal contours appear normal. Heart size is normal. Bones and chest wall: No suspicious bony lesions. Overlying soft tissues appear unremarkable. IMPRESSION: No pneumothorax. Reviewed by: Hermes Francois on 02/12/2023 11:53 AM PDT Approved by: Hermes Francois on 02/12/2023 11:53 AM PDT Station ID: [id number]
[2023-02-12] MEDS ORDERED: PROPOFOL 200 MG/20 ML VIAL IVP ONE ×2 (11:59→12:14)
[2023-02-12] MEDS ORDERED: ceFAZolin 1 GM VIAL ONE (12:10)
[2023-02-12] MEDS ORDERED: BUPIVACAINE 0.25% PF 30 ML VIAL SUBQ ONE ×2 (12:22)
[2023-02-12] MEDS ORDERED: LIDOCAINE 1%-EPI 1:100000 20 ML MDV SUBQ ONE ×2 (12:22)
--- NOTE | 2023-02-12 12:57 | OPERATIVE REPORT ---
Operative Report - General Procedure Date: 02/12/23 - Other Other Information/Narrative: PROCEDURE DATE: 02/12/23 PREOPERATIVE DIAGNOSIS: Kulwinder has Stage IV colon cancer. I am asked to perform venous access using an infusion port. POSTOPERATIVE DIAGNOSIS: Same NAME OF PROCEDURE: Placement of a 9.5F Angiodynamic Power Port into the superior vena cava via a left cephalic vein cutdown. SURGEON: Chago Branham MD, FACS STRATIGRAPHER SURGEON: None ANESTHESIA: Monitored anesthesia care COMPLICATIONS: None ESTIMATED BLOOD LOSS: 5 ml DRAINS: None DESCRIPTION OF OPERATION IS FOLLOWS: After consent for the procedure was obtained, the patient was brought to the operating room, where a surgical time- out was performed, indicating the patient and the procedure to be performed. A rolled towel was placed between the shoulder blades. The anterior chest wall, right and left sides, were prepped with alcohol-free Betadine and draped in a sterile fashion. The left arm was placed at the side, and the left chest wall was exposed. 1% lidocaine with epinephrine in a 50/50 mix with 1/4% Marcaine was used for local anesthesia throughout the procedure. An incision was made in the skin over the left deltopectoral groove and after the subcutaneous tissue was dissected and the deltopectoral groove was identified, the cephalic vein was identified deep within the deltopectoral groove. The cephalic vein was ligated distally and encircled proximally with 3- 0 silk ligatures. A venotomy was made and a single lumen 9.5 Angiodynamic catheter which had been previously flushed with heparinized saline was placed into the vein. Using fluoroscopy the catheter tip was advanced into the superior vena cava. A digital image was obtained for documentation. The proximal 3-0 silk ligature was then use to secure the catheter to the cephalic vein and the catheter was checked to make sure it was not crimped by the 3-0 silk ligature. It easily aspirated blood and infused heparinized saline. The back wall of the cephalic vein was then transected. A subcutaneous pocket was created at the cutdown incision site using electrocautery. The catheter was cut to the appropriate length and attached to the port using the accompanying flange The port was sutured to the pectoralis major muscle and fascia using interrupted 2-0 Prolene suture after the port was placed into the pocket. The port was checked in this position and it aspirated blood and easily instilled heparinized saline. The incision was closed using a running 3-0 Vicryl suture for the subcutaneous tissue. The skin was closed with a running 3-0 Vicryl subcuticular suture with Steri-Strips to reinforce the epidermis. The port again was checked for patency after the skin incision was closed and it functioned appropriately. The site of puncture was marked with indelible ink. Dressings were placed. The patient tolerated the procedure well and was brought to the recovery room with stable vital signs.
--- NOTE | 2023-02-12 13:03 | Discharge Plan ---
Discharge Plan Problem Reviewed?: Yes Disposition: 01 Home, Self Care Condition: Good Diet: Regular Activity Restrictions: (Avoid activity that causes left chest wall pain) Instruction Topics: Vascular Access Implantation Additional Instructions or Follow Up instructions: Keep dressing on and dry until seen in the oncology clinic next week Call the office or, after hours, the ED for questions or concerns. Tylenol or Ibuprofen for discomfort. No Smoking: If you smoke, Please STOP! Call for help.
--- NOTE | 2023-02-12 13:51 | ANESTHESIA POST OP EVALUATION ---
Anesthesia Post Eval - Post Anesthesia Eval Vitals: Last Vital Signs Temp 37.5 C 02/12/23 13:30 Pulse 98 02/12/23 13:30 Resp 22 02/12/23 13:30 BP 125/77 02/12/23 13:30 Pulse Ox 92 02/12/23 13:30 O2 Flow Rate 0 02/12/23 10:59 CV Function Including HR & BP: Stable Pain Control: Satisfactory Nausea & Vomiting: Negative Mental Status: Baseline Respiratory Status: Airway Patent Hydration Status: Satisfactory Anesthesia Complications: None
[2023-02-12 14:24] VITALS: BP 118/72
--- NOTE | 2023-02-13 16:52 | XRAY Report ---
PROCEDURE: OR Port-A-Cath INDICATIONS: Port-a-cath placement CONTRAST: Not applicable. FLUORO TIME: 0.01 min TECHNIQUE: Real time fluoroscopy was performed of the thorax. COMPARISON: Chest 2 views 02/10/2023. FINDINGS: Single intraoperative digital acquisition view targeted to the upper midline of the chest shows a cat heter traversing from left-sided approach and turning inferiorly in the expected area of the superior vena cava, to assist in intraoperative placement of a Port-A-Cath. No pneumothorax. IMPRESSION: Normal limited visualization during operative procedure of placement of a left-sided approach Port-A- Cath. No pneumothorax. Reviewed by: Shalom Bay MD on 02/13/2023 4:51 PM PDT Approved by: Shalom Bay MD on 02/13/2023 4:51 PM PDT Station ID: [id number]
== END 2023-02-12 09:31 | disposition home or self-care (01) ==
LOC: SDS 09:30
PROVIDERS: ATTEND Surgery
DX: C18.9 Malignant neoplasm of colon, unspecified (principal); C78.00 Secondary malignant neoplasm of unspecified lung; C78.7 Secondary malignant neoplasm of liver and intrahepatic bile duct; C78.2 Secondary malignant neoplasm of pleura; J90 Pleural effusion, not elsewhere classified
CPT/HCPCS: 32555; 36561; C1788; J7120

== ENCOUNTER 2023-02-16 10:42 | Outpatient (CLI) | payer MEDICARE, OTHER ==
[2023-02-16] MEDS ORDERED: LIDOCAINE-MPF 1% 5 ML VIAL TD ONE (12:37)
--- NOTE | 2023-02-16 12:44 | XRAY Report ---
PROCEDURE: Post Thoracentesis 1V CXR INDICATIONS: POST THORACENTESIS TECHNIQUE: One view of the chest was acquired. COMPARISON: 02/12/2023 FINDINGS: Surgical changes and devices: Left portacatheter terminates in the lower SVC. Lungs and pleura: Persistent right lung opacity and mild to moderate effusion, similar compared to p rior. Mediastinum: Mediastinal contours appear normal. Heart size is normal. Bones and chest wall: No suspicious bony lesions. Overlying soft tissues appear unremarkable. IMPRESSION: Persistent right lung opacity and mild to moderate effusion. No pneumothorax. Reviewed by: Segundo Girard MD on 02/16/2023 12:43 PM PDT Approved by: Segundo Girard MD on 02/16/2023 12:43 PM PDT Station ID: [id number]
--- NOTE | 2023-02-16 14:56 | Ultrasound Report ---
PROCEDURE: Thoracentesis Puncture INDICATIONS: PLEURAL EFFUSION TECHNIQUE: The indications, alternatives, benefits, risks, and complications of the procedure were explained to the patient. Written informed consent was obtained and placed in the chart. The chest was examined sonographically, and an appropriate site was chosen for thoracentesis. The skin was prepared and diana ped in the usual sterile fashion, and 1% lidocaine was infiltrated from the skin down through the ple ural surface. A 19-gauge catheter-covered needle was then introduced into the pleural space, the cat heter was advanced and the needle was withdrawn, and thereafter pleural fluid was aspirated. The cat heter was then removed and a dressing was applied. COMPARISON: 02/12/2023 FINDINGS: Access site: Right hemithorax. Needle: One-Step centesis catheter with introducer needle. Fluid volume and description: Serous sanguinous, 1.6 L, multiple loculations are present Fluid sent for diagnostic testing: No Medications: 1% lidocaine for local anaesthesia. Complications: None; post-procedural chest radiograph is pending to assess for pneumothorax. IMPRESSION: Successful ultrasound-guided thoracentesis. Reviewed by: Segundo Girard MD on 02/16/2023 2:55 PM PDT Approved by: Segundo Girard MD on 02/16/2023 2:55 PM PDT Station ID: [id number]
== END 2023-02-16 10:43 | disposition home or self-care (01) ==
LOC: DI 10:42
PROVIDERS: ATTEND Internal Medicine
DX: R19.00 Intra-abdominal and pelvic swelling, mass and lump, unspecified site (principal); J90 Pleural effusion, not elsewhere classified
CPT/HCPCS: 32555

== ENCOUNTER 2023-02-19 09:27 | Outpatient (CLI) | payer MEDICARE, OTHER ==
[2023-02-19] MEDS ORDERED: LIDOCAINE-MPF 1% 5 ML VIAL ONE (10:00)
--- NOTE | 2023-02-19 11:00 | XRAY Report ---
PROCEDURE: Post Thoracentesis 1V CXR INDICATIONS: Post thoracentesis imaging TECHNIQUE: One view of the chest was acquired. COMPARISON: 02/16/2023 FINDINGS: Surgical changes and devices: Left chest wall port Lungs and pleura: Persistent right lung opacity and moderate-sized pleural effusion is similar to pr ior. No interval development of pneumothorax. Mediastinum: Mediastinal contours appear normal. Hear t size is normal. Bones and chest wall: No suspicious bony lesions. Overlying soft tissues appear unremarkable. IMPRESSION: No significant interval change. No postprocedural pneumothorax. Note that during thoracentesis, exten sive loculations were noted, and only 250 cc of bloody fluid could be evacuated. Reviewed by: José Will on 02/19/2023 10:58 AM PDT Approved by: José Will on 02/19/2023 10:58 AM PDT Station ID: [id number]
[2023-02-19] MEDS ORDERED: LIDOCAINE-MPF 1% 5 ML VIAL TD ONE (13:10)
--- NOTE | 2023-02-19 15:54 | Ultrasound Report ---
PROCEDURE: Thoracentesis Puncture INDICATIONS: PLEURAL EFFUSION TECHNIQUE: The indications, alternatives, benefits, risks, and complications of the procedure were explained to the patient. Written informed consent was obtained and placed in the chart. The chest was examined sonographically, and an appropriate site was chosen for thoracentesis. The skin was prepared and diana ped in the usual sterile fashion, and 1% lidocaine was infiltrated from the skin down through the ple ural surface. A 19-gauge catheter-covered needle was then introduced into the pleural space, the cat heter was advanced and the needle was withdrawn, and thereafter pleural fluid was aspirated. The cat heter was then removed and a dressing was applied. COMPARISON: None. FINDINGS: Access site: Right hemithorax. Needle: One-Step centesis catheter with introducer needle. Fluid volume and description: 250 mL Bloody fluid Fluid sent for diagnostic testing: None Medications: 1% lidocaine for local anaesthesia. Complications: None; post-procedural chest radiograph is pending to assess for pneumothorax. IMPRESSION: 1. Successful ultrasound-guided thoracentesis. 2. Ultrasound demonstrated loculations of the lung with multiple small loculations measuring 1 to 3 c m. The largest loculation was aspirated today. Future thoracentesis may be limited due to the severit y of the loculations. Reviewed by: José Will on 02/19/2023 3:53 PM PDT Approved by: José Will on 02/19/2023 3:53 PM PDT Station ID: [id number]
== END 2023-02-19 09:28 | disposition home or self-care (01) ==
LOC: DI 09:27
PROVIDERS: ATTEND Internal Medicine
DX: J90 Pleural effusion, not elsewhere classified (principal)
CPT/HCPCS: 32555

== ENCOUNTER 2023-02-23 07:57 | Outpatient (CLI) | payer MEDICARE, OTHER ==
--- NOTE | 2023-02-23 09:32 | Ultrasound Report ---
PROCEDURE: Chest INDICATIONS: PLEURAL EFFUSION TECHNIQUE: Real-time scanning was performed, and a suitable site was marked by the reed polisher for thoracentesis to be performed by the referring clinician. COMPARISON: Ultrasound guided thoracentesis, 02/19/2023, 02/16/201001/12 and 02/12/2023. FINDINGS: There is a loculated right pleural effusion. Compared to the last exam, loculation has inc reased. IMPRESSION: 1. Highly loculated right pleural effusion. There is increased loculation when compared to last ultra sound. It is felt that a therapeutic thoracentesis would not be effective because of extensive locula tion. After discussing with the patient, a therapeutic thoracentesis was not performed. Reviewed by: Alla Rees MD on 02/23/2023 9:30 AM PDT Approved by: Alla Rees MD on 02/23/2023 9:30 AM PDT Station ID: [id number]
== END 2023-02-23 07:58 | disposition home or self-care (01) ==
LOC: DI 07:57
PROVIDERS: ATTEND Nurse Practitioner Adult Health
DX: J90 Pleural effusion, not elsewhere classified (principal)

== ENCOUNTER 2023-03-16 22:29 | Outpatient (CLI) | payer MEDICARE, OTHER | END 2023-03-16 23:59 | disposition critical access hospital (66) | LOC: EMS 22:29 | DX: R47.89 Other speech disturbances (principal); R41.0 Disorientation, unspecified; R50.9 Fever, unspecified | CPT/HCPCS: A0425; A0429 ==

== ENCOUNTER 2023-03-16 22:33 | Emergency (ER) | payer MEDICARE, OTHER ==
[2023-03-16 23:47] LABS: HCT - HEMATOCRIT 35.5 % (42.0-52.0); HGB - HEMOGLOBIN 11.2 g/dL (14.0-18.0); LYMPHOCYTES # (AUTO) 0.2 10^3/uL (1.5-3.5); MEAN CORPUSCULAR HEMOGLOBIN 26.2 pg (27.0-31.0); MEAN CORPUSCULAR HGB CONC 31.5 g/dL (32.0-36.0); MEAN CORPUSCULAR VOLUME 83.1 fL (80.0-94.0); MEAN PLATELET VOLUME 9.8 fL (7.4-11.4); MONOCYTES # (AUTO) 0.5 10^3/uL (0.0-1.0); MONOCYTES % (AUTO) 7.6 %; NEUTROPHILS # (AUTO) 5.3 10^3/uL (1.5-6.6); NEUTROPHILS % (AUTO) 88.6 %; PLT - PLATELET COUNT 137 10^3/uL (130-450); RED BLOOD COUNT 4.27 10^6/uL (4.70-6.10); RED CELL DISTRIBUTION WIDTH 13.9 % (12.0-15.0)
[2023-03-16] MEDS: ACETAMINOPHEN 500 MG TABLET PO STA (23:49)
[2023-03-16] MEDS: IBUPROFEN 800 MG TABLET PO STA (23:49)
[2023-03-16] MEDS: SODIUM CHLORIDE 0.9% 1,000 ML IV STA (23:49)
[2023-03-16] MEDS ORDERED: iohexoL-300 100 ML VIAL ONE (23:52)
[2023-03-17 01:14] LABS: ALBUMIN 3.1 g/dL (3.2-5.5); ALBUMIN/GLOBULIN RATIO 0.9 (1.0-2.2); BILIRUBIN,TOTAL 0.7 mg/dL (0.2-1.0); CALCIUM 8.4 mg/dL (8.5-10.3); CREATININE 0.8 mg/dL (0.6-1.2); POTASSIUM 4.2 mmol/L (3.5-5.0); TOTAL PROTEIN 6.6 g/dL (6.7-8.2)
[2023-03-17 01:16] LABS: B. PARAPERTUSSIS- RESP PCR PAN NOT DETECTED; B. PERTUSSIS- RESP PCR PANEL NOT DETECTED; C. PNEUMONIAE- RESP PCR PANEL NOT DETECTED; CORONAVIRUS 229E-RESP PCR NOT DETECTED; CORONAVIRUS HKU1-RESP PCR NOT DETECTED; CORONAVIRUS NL63-RESP PCR NOT DETECTED; CORONAVIRUS OC43-RESP PCR NOT DETECTED; HUMAN METAPNEUMOVIRUS NOT DETECTED; INFLUENZA A- RESP PCR PANEL NOT DETECTED; INFLUENZA B - RESP PCR PANEL NOT DETECTED; M. PNEUMONIAE- RESP PCR PANEL NOT DETECTED; PARAINFLUENZA VIRUS 1 NOT DETECTED; PARAINFLUENZA VIRUS 2 NOT DETECTED; PARAINFLUENZA VIRUS 3 NOT DETECTED; PARAINFLUENZA VIRUS 4 NOT DETECTED; RHINOVIRUS/ENTEROVIRUS NOT DETECTED; RSV- RESP PCR PANEL NOT DETECTED; SARS-CoV-2 -RESP PCR PANEL NOT DETECTED
[2023-03-17] MEDS: iohexoL-300 100 ML VIAL IVP ONE (01:21)
[2023-03-17] MEDS: SODIUM CHLORIDE 0.9% 1,000 ML IV STA ×2 (01:46→02:28)
--- NOTE | 2023-03-17 01:48 | XRAY Report ---
PROCEDURE: Chest 1 View X-Ray INDICATIONS: fever, cough TECHNIQUE: One view of the chest was acquired. COMPARISON: Chest x-ray 02/16/2023 FINDINGS: Surgical changes and devices: Left subclavian Port-A-Cath appears stable in position. Lungs and pleura: There is a persistent small to moderate right pleural effusion with loculation sup eriorly. Improved aeration demonstrated in the right lung with persistent medial right basilar atelec tasis or consolidation. Mild linear atelectasis or consolidation also demonstrated medially in the le ft lung base. No evidence of pneumothorax. Mediastinum: Mediastinal contours appear normal. Heart size is normal. Bones and chest wall: No suspicious bony lesions. Overlying soft tissues appear unremarkable. IMPRESSION: 1. Persistent small to moderate loculated right pleural effusion. 2. Improved aeration in the right lung with persistent medial right basilar consolidation or atelecta sis. 3. Mild atelectasis or consolidation also demonstrated medially in the left lung base. Reviewed by: Martinez Herrera MD on 03/17/2023 1:46 AM PDT Approved by: Martinez Herrera MD on 03/17/2023 1:46 AM PDT Station ID: [id number]
--- NOTE | 2023-03-17 01:52 | CT Report ---
PROCEDURE: ANGIO HEAD W/WO INDICATIONS: aphasia CONTRAST: Omni 300 100ml TECHNIQUE: Precontrast 4.5 mm thick angled axial sections acquired from the foramen magnum to the vertex. Afte r the administration of intravenous contrast, 1 mm thick sections acquired through the [place] of [place] is. Postcontrast 4.5 mm thick sections then re-acquired from the foramen magnum to the vertex. 3-di mensional qngtoek-idfgwumlu-cgpedkavxe (MIP) and/or volume rendering reformats were acquired of the c entral intracranial vasculature. For radiation dose reduction, the following was used: automated ex posure control, adjustment of mA and/or kV according to patient size. COMPARISON: Concurrent CTA of the neck FINDINGS: Image quality: There is mild motion artifact. BRAIN: CSF spaces: Basal cisterns are patent. No extra-axial fluid collections. Ventricles are normal in size and shape. Brain: No intracranial hemorrhage, mass, or mass effect. Velez-white matter interface appears preser joaquin. No abnormal intracranial enhancement. Skull and face: Calvarium and facial bones appear intact, without suspicious lesions. Orbits appear normal. Sinuses: Sinuses and mastoids are clear. HEAD CT ANGIOGRAPHY: Anterior circulation: Intracranial internal carotid arteries are normal in size and appear patent bi laterally. There is mild atherosclerotic calcification along the cavernous segments of the internal carotid arteries. The paired anterior cerebral arteries appear patent bilaterally. The anterior com municating artery also appears patent. The middle cerebral arteries appear patent bilaterally. No hi gh-grade stenosis, occlusion, or filling defects. No cerebral aneurysms identified. Posterior circulation: Visualized portions of the vertebral arteries demonstrate normal caliber, and join to form a patent basilar artery. The posterior cerebral arteries appears patent bilaterally. No high-grade stenosis, occlusion, or filling defects. No cerebral aneurysms identified. IMPRESSION: 1. No acute intracranial abnormality. 2. No high-grade stenosis or occlusion of the central intracranial arteries. Reviewed by: Martinez Herrera MD on 03/17/2023 1:51 AM PDT Approved by: Martinez Herrera MD on 03/17/2023 1:51 AM PDT Station ID: [id number]
--- NOTE | 2023-03-17 01:56 | CT Report ---
PROCEDURE: ANGIO NECK W INDICATIONS: aphasia CONTRAST: Omni 300 100ml TECHNIQUE: After the administration of intravenous contrast, 1.5 mm axial sections acquired from the aortic arch to the [place] of [place]. Coronal 3-D maximum intensity projection (MIP) and/or volume rendering ref ormats were then performed. For radiation dose reduction, the following was used: automated exposur e control, adjustment of mA and/or kV according to patient size. COMPARISON: Concurrent CTA of the head. FINDINGS: Image quality: Excellent. NECK CT ANGIOGRAPHY: Carotid system: The great vessels demonstrate a conventional anatomy as they arise from the aortic a rch. The origins of the common carotid arteries appear patent. The common carotid arteries demonstr ate normal caliber and courses. The bifurcation regions are both widely patent. The internal caroti d arteries demonstrate normal calibers and courses. Posterior circulation: The origins of the vertebral arteries both appear patent. The more superior extracranial portions of both vertebral arteries also demonstrate normal courses and calibers. They join to form a patent basilar artery. Soft tissues: Visualized neck soft tissues demonstrate no suspicious abnormalities. Thorax demonstra salvatore a partially visualized moderate right pleural effusion with associated compressive atelectasis. I n addition, there are bilateral pulmonary nodules within the visualized lungs including a right upper lobe nodule measuring up to 1.6 cm on series 2 image 2 and a left upper lobe medial nodule measuring 1.6 cm on series 2 image 40. Bones: No suspicious bony lesions. Visualized cervical spine demonstrates straightening of the cerv ical lordosis. There is multilevel degenerative disc disease and facet joint arthropathy. IMPRESSION: 1. No high-grade stenosis or occlusion of the head and neck arteries. 2. Partially visualized moderate right pleural effusion. 3. Bilateral pulmonary nodules within the visualized lungs. The findings are nonspecific but suspicio us for metastatic disease. Recommend dedicated chest CT when clinically feasible. The estimate of stenosis included in the report of the imaging study was calculated using the NASCET method Reviewed by: Martinez Herrera MD on 03/17/2023 1:55 AM PDT Approved by: Martinez Herrera MD on 03/17/2023 1:55 AM PDT Station ID: [id number]
[2023-03-17 03:43] LABS: BILIRUBIN,URINE NEGATIVE (NEGATIVE); GLUCOSE, URINE (UA) NEGATIVE (NEGATIVE); KETONES,URINE (UA) NEGATIVE (NEGATIVE); LEUKOCYTE ESTERASE, URINE NEGATIVE (NEGATIVE); NITRITE,URINE NEGATIVE (NEGATIVE); OCCULT BLOOD,URINE NEGATIVE (NEGATIVE); PH,URINE 5.5 PH (5.0-7.5); PROTEIN,URINE 30 mg/dL (NEGATIVE); UROBILINOGEN,URINE 0.2 (NORMAL) E.U./dL (NORMAL)
[2023-03-17 03:52] LABS: CLARITY,URINE CLEAR (CLEAR)
[2023-03-17] MEDS: ACETAMINOPHEN 325 MG TABLET PO STA (03:52)
[2023-03-17 03:53] LABS: BACTERIA,URINE None Seen /HPF (None Seen); RBC,URINE None Seen /HPF (0-5); SQUAMOUS EPITHELIAL CELL,UR NONE SEEN (<= Few); WBC,URINE 0-3 /HPF (0-3)
--- NOTE | 2023-03-17 04:19 | ED Physician Documentation ---
History of Present Illness - Stated complaint Stated Complaint: Confusion - Chief complaint Chief Complaint: Neuro - History obtained from History obtained from: Patient, Family, EMS - Additonal information Additional information: The patient is brought to the emergency department by EMS for chief complaint of confusion and saying the wrong words. Patient's states that he had seemed to be fine earlier in the day and in the evening but began to complain in the evening that he felt cold. The states she did not think too much of this because the patient has had cold sensitivity since being on chemo, and had just had something to drink. The suggested that they just go to bed and get some rest, but the patient began to have episodes of saying the wrong words. The noticed that it seemed to increasingly get worse and finally she became concerned and decided to Have the patient brought in for evaluation. The patient is able to answer occasional questions, then mostly, he is not able to answer coherently. The denies any focal deficits otherwise. The patient is being treated for stage IV metastatic colorectal cancer, And has just been started on immunotherapy and oral agents. The patient did vomit once This evening and suspects he brought up all of his pills. He has had a chronic cough but nothing new recently. He has not had any chest pain or abdominal pain. No other complaints at this time. PD PAST MEDICAL HISTORY - Past Medical History Cardiovascular: Hypertension, High cholesterol Respiratory: Pneumonia Neuro: None Endocrine/Autoimmune: Type 2 diabetes, HyPOthyroidism GI: GERD, Colon polyps, Other : None HEENT: Chronic hearing loss Psych: Claustrophobia Musculoskeletal: Osteoarthritis Derm: Rosacea, Other - Past Surgical History Past Surgical History: Yes General: Bowel surgery, Colonoscopy HEENT: Tonsil/Adenoidectomy - Present Medications Home Medications: Ambulatory Orders Medication Instructions Recorded Confirmed Levothyroxine [Synthroid] 75 mcg PO QDAC 02/13/16 03/17/23 Minocycline HCl 100 mg PO PRN PRN 07/01/16 03/17/23 Metoprolol Tartrate [Lopressor] 12.5 mg PO PRN PRN 12/20/19 03/17/23 Albuterol 2.5 mg INH Q4H PRN #30 ml 01/25/23 03/17/23 Cholecalciferol (Vitamin D3) 2,000 unit PO UD 02/02/23 03/17/23 [Vitamin D3] Famotidine 1 tab PO DAILY PRN 02/02/23 03/17/23 Ipratropium/Albuterol [Duoneb] 3 ml INH BID 02/02/23 03/17/23 Magnesium Citrate 125 mg PO BID 02/02/23 03/17/23 Melatonin 1 tab PO DAILY PRN 02/02/23 03/17/23 Ubidecarenone [Co Q10] 50 mg PO DAILY 02/02/23 03/17/23 Hydromorphone HCl 2 mg PO Q6H PRN #14 tablet 02/10/23 03/17/23 Prochlorperazine Maleate 10 mg PO RTQ4H PRN 02/16/23 03/17/23 [Compazine] ondansetron HCL [Ondansetron HCl] 8 mg PO PRN PRN 02/16/23 03/17/23 Capecitabine [Xeloda] 2,000 mg PO BID 02/24/23 03/17/23 - Allergies Allergies/Adverse Reactions: Allergies Allergy/AdvReac Type Severity Reaction Status Date / Time oxycodone Allergy Unknown Unknown Verified 03/16/23 22:42 adhesive tape Allergy Rash Verified 03/16/23 22:42 aspirin Allergy Rash Verified 03/16/23 22:42 diphenhydramine HCl * Allergy Hives Verified 03/16/23 22:42 [From Benadryl] latex Allergy Rash Verified 03/16/23 22:42 naproxen sodium * Allergy Rash Verified 03/16/23 22:42 [From Aleve] Sulfa (Sulfonamide Allergy Rash Verified 03/16/23 22:42 Antibiotics) clonidine AdvReac Rash Verified 03/16/23 22:42 doxazosin AdvReac Hives Verified 03/16/23 22:42 losartan AdvReac Rash Verified 03/16/23 22:42 omeprazole AdvReac Rash Verified 03/16/23 22:42 - Social History Does the pt smoke?: No Smoking Status: Never smoker PD ED PE NORMAL - Vitals Vital signs reviewed: Yes - General General: No acute distress, Well developed/nourished, Other (The patient is awake and pleasant, but occasionally dozes off. He is in no apparent distress.) - HEENT HEENT: Atraumatic, PERRL, EOMI, Moist mucous membranes - Neck Neck: Supple, no meningeal sign - Cardiac Cardiac: RRR, No murmur, Strong equal pulses - Respiratory Respiratory: No respiratory distress, Clear bilaterally - Abdomen Abdomen: Soft, Non tender, Non distended - Derm Derm: Normal color, Warm and dry, No rash - Extremities Extremities: No deformity, No edema - Neuro Neuro: No motor deficit, No sensory deficit, Other (The patient appears to understand question but then answers either with inappropriate words or complete gibberish.) - Psych Psych: Normal mood, Normal affect Results - Vitals Vitals: Vital Signs - 24 hr 03/16/23 03/16/23 03/17/23 22:39 23:22 00:15 Temperature 39.7 C H Heart Rate 106 H 98 97 Respiratory 19 18 18 Rate Blood Pressure 123/59 L 122/60 125/62 O2 Saturation 90 L 92 94 03/17/23 03/17/23 03/17/23 01:45 02:30 03:50 Temperature 37.1 C 36.9 C Heart Rate 87 84 76 Respiratory 18 18 Rate Blood Pressure 113/68 108/60 O2 Saturation 95 99 94 03/17/23 04:25 Temperature 36.7 C Heart Rate 63 Respiratory 22 Rate Blood Pressure 116/63 O2 Saturation 94 Oxygen O2 Source Room air - Labs Labs: Laboratory Tests 03/16/23 03/16/23 03/16/23 23:21 23:21 23:21 WBC 6.0 RBC 4.27 L Hgb 11.2 L Hct 35.5 L MCV 83.1 MCH 26.2 L MCHC 31.5 L RDW 13.9 Plt Count 137 MPV 9.8 Neut # (Auto) 5.3 Lymph # (Auto) 0.2 L [place] # (Auto) 0.5 Eos # (Auto) 0.0 Baso # (Auto) 0.0 Absolute Nucleated RBC 0.00 Nucleated RBC % 0.0 Sodium 133 L Potassium 4.2 Chloride 98 L Carbon Dioxide 23 Anion Gap 12.0 BUN 12 Creatinine 0.8 Estimated GFR (MDRD) 96 Glucose 180 H Lactic Acid 2.2 Calcium 8.4 L Total Bilirubin 0.7 AST 28 ALT 30 Alkaline Phosphatase 81 Total Protein 6.6 L Albumin 3.1 L Globulin 3.5 Albumin/Globulin Ratio 0.9 L Lipase 27 Urine Color Urine Clarity Urine pH Ur Specific [place] Urine Protein Urine Glucose (UA) Urine Ketones Urine Occult Blood Urine Nitrite Urine Bilirubin Urine Urobilinogen Ur Leukocyte Esterase Urine RBC Urine WBC Ur Squamous Epith Cells Urine Bacteria Ur Microscopic Review Urine Culture Comments Nasal Adenovirus (PCR) Nasal B. parapertussis DNA (PCR) Nasal Coronavir 229E PCR Nasal Coronavir HKU1 PCR Nasal Coronavir NL63 PCR Nasal Coronavir OC43 PCR Nasal Enterovir/Rhinovir PCR Nasal Influenza B PCR Nasal Influenza A PCR Nasal Parainfluen 1 PCR Nasal Parainfluen 2 PCR Nasal Parainfluen 3 PCR Nasal Parainfluen 4 PCR Nasal RSV (PCR) Nasal B.pertussis DNA PCR Nasal C.pneumoniae (PCR) [place] Human Metapneumo PCR Nasal M.pneumoniae (PCR) Nasal SARS-CoV-2 (PCR) 03/17/23 03/17/23 00:12 03:25 WBC RBC Hgb Hct MCV MCH MCHC RDW Plt Count MPV Neut # (Auto) Lymph # (Auto) [place] # (Auto) Eos # (Auto) Baso # (Auto) Absolute Nucleated RBC Nucleated RBC % Sodium Potassium Chloride Carbon Dioxide Anion Gap BUN Creatinine Estimated GFR (MDRD) Glucose Lactic Acid Calcium Total Bilirubin AST ALT Alkaline Phosphatase Total Protein Albumin Globulin Albumin/Globulin Ratio Lipase Urine Color YELLOW Urine Clarity CLEAR Urine pH 5.5 Ur Specific [place] 1.010 Urine Protein 30 H Urine Glucose (UA) NEGATIVE Urine Ketones NEGATIVE Urine Occult Blood NEGATIVE Urine Nitrite NEGATIVE Urine Bilirubin NEGATIVE Urine Urobilinogen 0.2 (NORMAL) Ur Leukocyte Esterase NEGATIVE Urine RBC None Seen Urine WBC 0-3 Ur Squamous Epith Cells NONE SEEN Urine Bacteria None Seen Ur Microscopic Review INDICATED Urine Culture Comments NOT INDICATED Nasal Adenovirus (PCR) NOT DETECTED Nasal B. parapertussis DNA (PCR) NOT DETECTED Nasal Coronavir 229E PCR NOT DETECTED Nasal Coronavir HKU1 PCR NOT DETECTED Nasal Coronavir NL63 PCR NOT DETECTED Nasal Coronavir OC43 PCR NOT DETECTED Nasal Enterovir/Rhinovir PCR NOT DETECTED Nasal Influenza B PCR NOT DETECTED Nasal Influenza A PCR NOT DETECTED Nasal Parainfluen 1 PCR NOT DETECTED Nasal Parainfluen 2 PCR NOT DETECTED Nasal Parainfluen 3 PCR NOT DETECTED Nasal Parainfluen 4 PCR NOT DETECTED Nasal RSV (PCR) NOT DETECTED Nasal B.pertussis DNA PCR NOT DETECTED Nasal C.pneumoniae (PCR) NOT DETECTED Gu[place] Human Metapneumo PCR NOT DETECTED Nasal M.pneumoniae (PCR) NOT DETECTED Nasal SARS-CoV-2 (PCR) NOT DETECTED - Rads (name of study) CTA head and neck Relevant Findings:: Final report received, See rad report (No blockages noted.) Chest x-ray Relevant Findings:: Final report received, See rad report (Improvement in right lung aeration but still some consolidation present. Small right pleural effusion. Left lung with consolidation.) PD Medical Decision Making - ED course Complexity details: reviewed results, re-evaluated patient, considered differential, d/w patient, d/w family ED course: The patient was treated symptomatically with IV fluid and doses of ibuprofen and Tylenol. I was not sure whether the patient was exhibiting febrile delirium or having cerebrovascular accident and as such, I ordered multiple test to cover both possibilities. Extensive work-up in the emergency department was negative. The patient CT angiograms of the head and neck were negative for any iden tifiable blockage, and laboratory studies including CBC, lactate, And ear abdominal panel were unremarkable. The patient had a normal white blood cell count and a normal lactic acid level. Respiratory PCR panel was negative also. Chest x-ray showed chronic findings but nothing acute or indicative of infection. The patient's urinalysis was negative. Blood cultures were drawn and pending. On reevaluation, the patient was found to be completely lucid. He had defervesced in the emergency department and concurrent with this was his improvement in mental status. I suspected that given his CTAs being negative and the Concurrence of the altered mental status with the fever, and rule resolution of the same, that the patient was more likely experiencing febrile delirium than aphasia secondary to a TIA. I discussed with the patient and his that at this point we have not found a reason for the patient's fever. Extensive work-up has been done and the only thing pending at this point in time are the blood cultures. On reevaluation, with lucid mental status, the patient denies any other symptoms whatsoever. He has no abdominal pain to indicate anything intra-abdominal he that is worse or different than the usual discomfort that he has secondary to his colorectal cancer. At this point the patient's vitals are stable and he is doing much better and I feel he can be discharged home. I discussed with the patient and his that the preliminary results of the blood Kroschel's will come back tomorrow and that if these are positive we will call him at home. They also understand that they should have a very low threshold for return to the emergency department, should the patient begin to feel worse. Patient is are agreeable to this plan. Departure - Departure Disposition: 01 Home, Self Care Clinical Impression: Delirium Fever Qualifiers: Fever type: unspecified Qualified Code(s): R50.9 - Fever, unspecified Condition: Stable Instructions: ED Fever Unconf Cause Comments: You were found to have a significant fever today and this is most likely the cause of your confusion and speaking the wrong words, given that you do not remember the incident at all and have completely resolved your symptoms with the fever coming down. You were worked up extensively to determine the cause of your symptoms, including with CT scans of the head and neck looking at all the vessels providing blood flow to your brain. These were negative for any blockage which would indicate a stroke. Laboratory studies were also performed which showed a normal white blood cell count, negative sepsis markers, and no other significant findings. Respiratory PCR panel was also negative. Your chest x-ray showed the findings consistent with the lung metastases and scarring but did not show findings consistent with pneumonia at this time. Your urinalysis is negative. The only test pending still are your blood cultures which will yield a preliminary result tomorrow. If this is at all positive, you will be called at home. For now, you are doing much better and there is no evidence at this point in time of a serious bacterial infection. You may go home and continue to drink lots of fluids. You should also take ibuprofen 600 mg every 6 hours and acetaminophen/Tylenol 650 mg every 4 hours, as needed for fever. If you at all feel that your general condition is worsening, then please return to the emergency department for further evaluation. At this point in time, you are stable for discharge home. Discharge Date/Time: 03/17/23 03:30
[2023-03-17 05:03] VITALS: BP 116/63
== END 2023-03-17 03:30 | disposition home or self-care (01) ==
LOC: EDUNIT# → ED 22:33
DX: R41.0 Disorientation, unspecified (principal); R50.9 Fever, unspecified; Z20.822 Contact with and (suspected) exposure to COVID-19
CPT/HCPCS: 36415; 80053; 81001; 81003; 83605; 83690; 85025; 87040; 87086; 87633; 96360; 96361; 99284

== ENCOUNTER 2023-12-13 08:00 | Outpatient (CLI) | payer MEDICARE, OTHER | END 2023-12-13 23:59 | disposition home or self-care (01) | LOC: PC 08:00 | PROVIDERS: ATTEND Nurse Practitioner Adult Health | DX: Z51.5 Encounter for palliative care (principal); C78.00 Secondary malignant neoplasm of unspecified lung | CPT/HCPCS: 99426; 99427 ==

== ENCOUNTER 2023-12-14 09:14 | Outpatient (CLI) | payer MEDICARE, OTHER | END 2023-12-14 09:15 | disposition home or self-care (01) | LOC: LAB 09:14 | PROVIDERS: ATTEND Internal Medicine | DX: C18.9 Malignant neoplasm of colon, unspecified (principal); E03.9 Hypothyroidism, unspecified; L03.90 Cellulitis, unspecified | CPT/HCPCS: 36415; 84443 ==

== ENCOUNTER 2024-01-01 08:00 | Outpatient (CLI) | payer MEDICARE, OTHER | END 2024-01-01 23:59 | disposition home or self-care (01) | LOC: PC 08:00 | PROVIDERS: ATTEND Nurse Practitioner Adult Health | DX: Z51.5 Encounter for palliative care (principal); G89.3 Neoplasm related pain (acute) (chronic); C18.9 Malignant neoplasm of colon, unspecified; C78.7 Secondary malignant neoplasm of liver and intrahepatic bile duct; C78.00 Secondary malignant neoplasm of unspecified lung; C78.2 Secondary malignant neoplasm of pleura; R53.83 Other fatigue; F41.8 Other specified anxiety disorders; Z79.899 Other long term (current) drug therapy; Z71.89 Other specified counseling | CPT/HCPCS: 99215 ==

== ENCOUNTER 2024-02-12 08:00 | Outpatient (CLI) | payer MEDICARE, OTHER | END 2024-02-12 23:59 | disposition home or self-care (01) | LOC: PC 08:00 | PROVIDERS: ATTEND Nurse Practitioner Adult Health | DX: Z51.5 Encounter for palliative care (principal); C78.00 Secondary malignant neoplasm of unspecified lung | CPT/HCPCS: 99426; 99427 ==

== ENCOUNTER 2024-02-22 08:00 | Outpatient (CLI) | payer MEDICARE, OTHER | END 2024-02-22 23:59 | disposition home or self-care (01) | LOC: PC 08:00 | PROVIDERS: ATTEND Nurse Practitioner Adult Health | DX: Z51.5 Encounter for palliative care (principal); G89.3 Neoplasm related pain (acute) (chronic); R53.83 Other fatigue; F41.8 Other specified anxiety disorders; C18.9 Malignant neoplasm of colon, unspecified; C78.00 Secondary malignant neoplasm of unspecified lung; C78.2 Secondary malignant neoplasm of pleura; C78.7 Secondary malignant neoplasm of liver and intrahepatic bile duct; Z71.89 Other specified counseling; Z79.899 Other long term (current) drug therapy | CPT/HCPCS: 99215 ==

== ENCOUNTER 2024-03-31 08:00 | Outpatient (CLI) | payer MEDICARE, OTHER | END 2024-03-31 23:59 | disposition home or self-care (01) | LOC: PC 08:00 | PROVIDERS: ATTEND Nurse Practitioner Adult Health | DX: Z51.5 Encounter for palliative care (principal); C18.9 Malignant neoplasm of colon, unspecified; C78.00 Secondary malignant neoplasm of unspecified lung; C78.2 Secondary malignant neoplasm of pleura; C78.7 Secondary malignant neoplasm of liver and intrahepatic bile duct; C77.2 Secondary and unspecified malignant neoplasm of intra-abdominal lymph nodes; G89.3 Neoplasm related pain (acute) (chronic); R53.83 Other fatigue; R63.4 Abnormal weight loss; F41.8 Other specified anxiety disorders; Z68.23 Body mass index [BMI] 23.0-23.9, adult; Z71.89 Other specified counseling | CPT/HCPCS: 99215 ==

== ENCOUNTER 2024-04-13 08:00 | Outpatient (CLI) | payer MEDICARE, OTHER | END 2024-04-13 23:59 | disposition home or self-care (01) | LOC: PC 08:00 | PROVIDERS: ATTEND Nurse Practitioner Adult Health | DX: Z51.5 Encounter for palliative care (principal); C78.00 Secondary malignant neoplasm of unspecified lung | CPT/HCPCS: 99426 ==

== ENCOUNTER 2024-05-09 10:15 | Outpatient (CLI) | payer MEDICARE, OTHER | END 2024-05-09 23:59 | disposition home or self-care (01) | LOC: PC 10:15 | PROVIDERS: ATTEND Nurse Practitioner Adult Health | DX: Z51.5 Encounter for palliative care (principal); G89.3 Neoplasm related pain (acute) (chronic); C18.9 Malignant neoplasm of colon, unspecified; C78.00 Secondary malignant neoplasm of unspecified lung; C78.2 Secondary malignant neoplasm of pleura; C78.7 Secondary malignant neoplasm of liver and intrahepatic bile duct; L71.9 Rosacea, unspecified; R59.0 Localized enlarged lymph nodes; F41.8 Other specified anxiety disorders; R53.83 Other fatigue; Z79.899 Other long term (current) drug therapy | CPT/HCPCS: 99215 ==